=== PATIENT | male | born 1930 | race Caucasian/White ===

== ENCOUNTER 2018-09-25 15:37 | Emergency (ER) | payer MEDICARE ==
[~2018-09-25] VITALS: Ht 180.3 cm; Wt 88.5 kg
[~2018-09-25 15:37] MED LIST: AMLO10 PO; FINA5 PO; FURO20 PO; HYDR10 PO; LOSA50 PO; METO50ER PO; PANT40 PO; POTCHL10ER PO
== END 2018-09-25 17:03 | disposition home or self-care (01) ==
LOC: ER 15:37
DX: S61.216A Laceration without foreign body of right little finger without damage to nail, initial encounter (principal); S61.212A Laceration without foreign body of right middle finger without damage to nail, initial encounter; Z88.8 Allergy status to other drugs, medicaments and biological substances; Z79.899 Other long term (current) drug therapy; Z87.891 Personal history of nicotine dependence; W01.118A Fall on same level from slipping, tripping and stumbling with subsequent striking against other sharp object, initial encounter
CPT/HCPCS: 12001; 99282-25

== ENCOUNTER 2019-02-21 17:06 | Emergency (ER) | payer OTHER, MEDICARE ==
[~2019-02-21] VITALS: Ht 172.7 cm; Wt 82.5 kg
[2019-02-21] MEDS ORDERED: SPIR25 PO (19:47)
[2019-02-21] MEDS ORDERED: CELE100 PO (19:48)
[2019-02-21] MEDS ORDERED: LOSA50 PO (19:49)
[2019-02-21] MEDS ORDERED: Percocet 5-3251 EACH PO (19:49)
== END 2019-02-21 21:05 | disposition home or self-care (01) ==
LOC: ER 17:06
DX: S01.01XA Laceration without foreign body of scalp, initial encounter (principal); S01.81XA Laceration without foreign body of other part of head, initial encounter; Z88.8 Allergy status to other drugs, medicaments and biological substances; Z79.899 Other long term (current) drug therapy; Z87.891 Personal history of nicotine dependence; W01.0XXA Fall on same level from slipping, tripping and stumbling without subsequent striking against object, initial encounter
CPT/HCPCS: 12001; 70450; 99283-25

== ENCOUNTER 2019-03-12 12:27 | Emergency (ER) | payer OTHER, MEDICARE ==
[~2019-03-12] VITALS: Ht 175.3 cm; Wt 83.9 kg
[~2019-03-12 12:27] MED LIST changes: +CELE100 PO; +Percocet 5-3251 EACH PO; +SPIR25 PO
[2019-03-12 13:10] LABS: BASOPHILS ABSOLUTE AUTO 0.02 K/mm3 (0.00-0.23); BASOPHILS PERCENT AUTO 0 % (0-2); EOSINOPHILS ABSOLUTE AUTO 0.09 K/mm3 (0.00-0.68); EOSINOPHILS PERCENT AUTO 2 % (0-6); Hematocrit 36.7 % (37.0-53.0); Hemoglobin 12.3 g/dL (13.5-17.5); IMMATURE GRAN ABSOLUTE AUTO 0.01 K/mm3 (0.00-0.10); IMMATURE GRAN PERCENT AUTO 0 % (0-1); LYMPHOCYTES ABSOLUTE AUTO 0.67 K/mm3 (0.84-5.20); LYMPHOCYTES PERCENT AUTO 14 % (21-46); MONOCYTES ABSOLUTE AUTO 0.45 K/mm3 (0.16-1.47); MONOCYTES PERCENT AUTO 9 % (4-13); Mean Corpuscular HGB Conc 33.5 g/dL (31.5-36.5); Mean Corpuscular Volume 90 fL (80-100); NEUTROPHILS ABSOLUTE AUTO 3.55 K/mm3 (1.96-9.15); NEUTROPHILS PERCENT AUTO 74 % (41-73); Platelet Count 183 K/mm3 (150-400); RDW Coefficient Variation 13.5 % (11.7-14.2); RDW Standard Deviation 44.5 fL (35.1-46.3); White Blood Cell Count 4.79 K/mm3 (4.00-11.30)
[2019-03-12 13:34] LABS: Alanine Aminotransfer (ALT/SGP 19 U/L (12-78); Albumin, Blood 3.7 g/dL (3.4-5.0); Albumin/Globulin Ratio 1.1 (0.8-1.8); Alk Phos 144 U/L (50-136); Anion Gap 3 mmol/L (6-16); Aspartate Aminotrans (AST/SGOT 18 U/L (12-37); Bilirubin, Total 0.4 mg/dL (0.1-1.0); Blood Urea Nitrogen 16 mg/dL (8-24); Bun/Creatinine Ratio 15.8 (12.0-20.0); CO2, Blood 27 mmol/L (21-32); Calcium, Blood 9.3 mg/dL (8.5-10.1); Chloride, Blood 97 mmol/L (98-108); Creatinine, Blood 1.01 mg/dL (0.60-1.20); Globulin, Blood 3.4 g/dL (2.2-4.0); Glomerular Filtration Rate >60 (60-); Glucose, Blood 106 mg/dL (70-99); Potassium, Blood 3.9 mmol/L (3.5-5.5); Sodium, Blood 127 mmol/L (136-145); Total Protein, Blood 7.1 g/dL (6.4-8.2)
== END 2019-03-12 13:49 | disposition home or self-care (01) ==
LOC: ER 12:27
PROVIDERS: Physician Assistant
DX: F07.81 Postconcussional syndrome (principal); Z88.8 Allergy status to other drugs, medicaments and biological substances; Z79.899 Other long term (current) drug therapy; Z87.891 Personal history of nicotine dependence
CPT/HCPCS: 36415; 80053; 85025; 93005; 93010; 99284-25

== ENCOUNTER 2019-05-31 17:31 | Emergency (ER) | payer OTHER, MEDICARE ==
[~2019-05-31] VITALS: Ht 175.3 cm; Wt 84.8 kg
[2019-05-31] MEDS ORDERED: CEPH500 PO (21:14)
[2019-05-31] MEDS ORDERED: Norco 5-325 Ta1 EACH PO (21:14)
== END 2019-05-31 21:54 | disposition home or self-care (01) ==
LOC: ER 17:31
DX: S56.421A Laceration of extensor muscle, fascia and tendon of right index finger at forearm level, initial encounter (principal); S56.423A Laceration of extensor muscle, fascia and tendon of right middle finger at forearm level, initial encounter; S61.214A Laceration without foreign body of right ring finger without damage to nail, initial encounter; Z88.8 Allergy status to other drugs, medicaments and biological substances; Z79.899 Other long term (current) drug therapy; Z87.891 Personal history of nicotine dependence; W27.0XXA Contact with workbench tool, initial encounter
CPT/HCPCS: 12004; 73130; 99283-25; A9270-GY